=== PATIENT | male | born 1985 | race Caucasian/White ===

== ENCOUNTER → 2021-09-07 | Outpatient (CLI) | payer OTHER ==
[~2021-09-07] MED LIST: CEPHALEXIN500 M1 PO; NO HOME MEDICATIONS; PERCOCET 325 MG1 TA2 PO
== END ==
LOC: COL.RAD 09:29
DX: M43.8X6 Other specified deforming dorsopathies, lumbar region (principal)

== ENCOUNTER → 2021-12-06 | Outpatient (CLI) | payer OTHER | LOC: COL.RAD 16:01 | DX: M48.56XA Collapsed vertebra, not elsewhere classified, lumbar region, initial encounter for fracture (principal) ==

== ENCOUNTER → 2021-12-06 | Outpatient (CLI) | payer OTHER | LOC: MHCPAIN 14:51 | DX: M54.59 Other low back pain (principal); M54.6 Pain in thoracic spine; M48.56XS Collapsed vertebra, not elsewhere classified, lumbar region, sequela of fracture | CPT/HCPCS: G0463 ==

== ENCOUNTER → 2022-01-29 | Outpatient (CLI) | payer OTHER | LOC: MHCPAIN 16:03 | DX: M54.50 Low back pain, unspecified (principal); M79.18 Myalgia, other site; M48.56XS Collapsed vertebra, not elsewhere classified, lumbar region, sequela of fracture; M53.3 Sacrococcygeal disorders, not elsewhere classified; M54.6 Pain in thoracic spine | CPT/HCPCS: G0463 ==

== ENCOUNTER → 2022-02-05 | Outpatient (CLI) | payer OTHER | LOC: MHCPAIN 14:54 | DX: M54.50 Low back pain, unspecified (principal); M79.18 Myalgia, other site | CPT/HCPCS: J3301 ==